=== PATIENT | female | born 1965 | race Two or more races ===

== ENCOUNTER 2021-04-24 18:21 | Emergency (ER) | payer SELFPAY ==
[~2021-04-24] VITALS: Ht 165.1 cm; Wt 81.6 kg
[2021-04-24 18:23] VITALS: BP_SYST 88
--- NOTE | 2021-04-24 18:23 | NUR ---
PT TRIAGED AND PLACED IN AMBULANCE WITH EMT'S FOR AVAILABLE BED
[2021-04-24] MEDS ORDERED: FAMO-132 PO (20:30)
[2021-04-24] MEDS ORDERED: DIPH25CA83 PO (20:30)
[2021-04-24] MEDS ORDERED: EPIN0.3P3 IM (20:30)
[2021-04-24] MEDS ORDERED: ONDA-8 TL (20:30)
[2021-04-24] MEDS ORDERED: DIPHENHYDRAMINE INJ 50 MG/ML VIAL IVP ONE (20:30)
[2021-04-24] MEDS ORDERED: FAMOTIDINE PF 20 MG/2 ML VIAL IVP ONE (20:30)
[2021-04-24] MEDS ORDERED: methylPREDNISolone SOD SUCC/PF 62.5 MG/ML VIAL IVP ONE (20:45)
--- NOTE | 2021-04-24 20:45 | NUR ---
Received patient to ER w/ c/o allergic reaction to a new medicine "purchased from [employer]" for which patient had an allergic reaction w/ n/v. Patient after being medicated w/ iv fluids and zofran by paramedics states feels better. Patient resting quietly. No acute distress noted. Vital signs within normal range. Introduced self to patient, positioned for comfort bed to low position sr up, continue to monitor.
--- NOTE | 2021-04-24 20:50 | NUR ---
Medicated w/ benadryl, pepcid, and solumedrol per MD orders. IVF infusing with no s/s of infiltration at this time. Will cont to monitor and observe for any adverse reaction. bed to low position sr up, continue to monitor.
--- NOTE | 2021-04-24 21:36 | NUR ---
Patient given written and verbal discharge instructions and verbalizes understanding. ER MD discussed with patient the results and treatment provided. Patient in stable condition. ID arm band removed. IV catheter removed intact and dressing applied, no active bleeding.Rx of Benadryl, Epipen, Pepcid, Zofran sent to pharmacy. Patient educated on pain management and to follow up with PMD. Pain Scale 0/10. Opportunity for questions provided and answered.
[2021-04-24 21:38] VITALS: BP_SYST 124
== END 2021-04-24 21:36 | disposition home or self-care (01) ==
LOC: SED 18:21
DX: R11.2 Nausea with vomiting, unspecified (principal); T50.995A Adverse effect of other drugs, medicaments and biological substances, initial encounter; Z79.899 Other long term (current) drug therapy; X58.XXXA Exposure to other specified factors, initial encounter; Y92.89 Other specified places as the place of occurrence of the external cause
CPT/HCPCS: 96374; 96375; 99284; J1200; J2930; J3490